=== PATIENT | male | born 1995 | race Caucasian/White ===

== ENCOUNTER 2023-11-16 10:57 | Emergency (ER) | payer OTHER ==
--- NOTE | 2023-11-16 11:34 | ED Physician Documentation ---
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 Comorbidities include anxiety and depression for which he takes Lexapro. He has been drinking steadily for months. Last alcoholic drink was a couple of days ago but has been drinking rubbing alcohol in the interim, but only a total of three quarters of a bottle over the course of a few days. He is shaky. Denies hallucinations or vomiting. PD PAST MEDICAL HISTORY - Past Medical History Past Medical History: Yes Psych: Depression, Anxiety - Past Surgical History Past Surgical History: No - Allergies Allergies/Adverse Reactions: Allergies Allergy/AdvReac Type Severity Reaction Status Date / Time No Known Drug Allergies Allergy Verified 11/16/23 11:20 - Social History Does the pt smoke?: No Smoking Status: Never smoker Does the pt drink ETOH?: Yes ETOH Use: Liquor Does the pt have substance abuse?: No - Immunizations Immunizations are current?: Yes PD ED PE NORMAL - Vitals Vital signs reviewed: Yes - General General: Alert and oriented X 3, Other (Modestly shaky with borderline resting tachycardia) - HEENT HEENT: Other (Bloodshot eyes but not overtly icteric.) - Neck Neck: Supple, no meningeal sign, No bony TTP - Cardiac Cardiac: RRR, No murmur - Respiratory Respiratory: No respiratory distress, Clear bilaterally - Abdomen Abdomen: Non tender - Neuro Neuro: Alert and oriented X 3, 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 Relevant findings are: Rate: Rate (enter#) (82) Rhythm: NSR [place]: Normal Intervals: Normal MI QRS: Normal Ischemia: Normal ST segments - Labs Labs: Laboratory Tests 11/16/23 11/16/23 11/16/23 11:38 11:38 11:38 WBC 8.6 RBC 4.35 L Hgb 14.5 Hct 42.5 MCV 97.7 H MCH 33.3 H MCHC 34.1 RDW 12.7 Plt Count 241 MPV 8.5 Neut # (Auto) 6.8 H Lymph # (Auto) 1.2 L [place] # (Auto) 0.5 Eos # (Auto) 0.0 Baso # (Auto) 0.1 Absolute Nucleated RBC 0.00 Nucleated RBC % 0.0 VBG pH 7.493 H VBG pCO2 36.5 L VBG pO2 25.3 VBG HCO3 27.4 VBG Total CO2 28.5 VBG O2 Saturation 53.4 L VBG Base Excess 4.2 H Sodium 136 Potassium 3.2 L Chloride 98 L Carbon Dioxide 29 Anion Gap 9.0 BUN 7 Creatinine 1.2 Estimated GFR (MDRD) 73 L Glucose 131 H Calcium 9.4 Magnesium 1.5 L Total Bilirubin 0.5 AST 200 H ALT 140 H Alkaline Phosphatase 37 L Total Creatine Kinase 92 Total Protein 6.8 Albumin 4.5 Globulin 2.3 Albumin/Globulin Ratio 2.0 Lipase 35 TSH 1.19 Salicylates < 1.5 Acetaminophen 0.1 Ethyl Alcohol < 10.0 Serum Ketones SMALL H SARS-CoV-2 (PCR) 11/16/23 11:48 WBC RBC Hgb Hct MCV MCH MCHC RDW Plt Count MPV Neut # (Auto) Lymph # (Auto) [place] # (Auto) Eos # (Auto) Baso # (Auto) Absolute Nucleated RBC Nucleated RBC % VBG pH VBG pCO2 VBG pO2 VBG HCO3 VBG Total CO2 VBG O2 Saturation VBG Base Excess Sodium Potassium Chloride Carbon Dioxide Anion Gap BUN Creatinine Estimated GFR (MDRD) Glucose Calcium Magnesium Total Bilirubin AST ALT Alkaline Phosphatase Total Creatine Kinase Total Protein Albumin Globulin Albumin/Globulin Ratio Lipase TSH Salicylates Acetaminophen Ethyl Alcohol Serum Ketones SARS-CoV-2 (PCR) NOT DETECTED PD Medical Decision Making - ED course ED course: 28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 Social work was involved and arranged for him to go to [facility] and I did do a doctor to doctor discussion with Dr. Goldstein at [facility] who accepts at approximately 3:10 PM. In the interim labs were notable for mild hypokalemia and hypomagnesemia repleted orally. CMP was otherwise remarkable for mild transaminitis from his alcoholism. CBC only notable for macrocytosis. He had no alcohol on board and a COVID swab was negative. He did have small ketones but was taking plenty of oral fluids here and an unremarkable venous blood gas which was checked given the recent isopropanol ingestion. Departure - Departure Disposition: 65 Psych Hosp/Unit DC/Xfer Clinical Impression: Hypokalemia, Hypomagnesemia, Alcohol abuse Condition: Stable Forms: PCP List
[2023-11-16 11:45] LABS: BASOPHILS # (AUTO) 0.1 10^3/uL (0.0-0.1); BASOPHILS % (AUTO) 0.6 %; EOSINOPHILS % (AUTO) 0.2 %; HCT - HEMATOCRIT 42.5 % (42.0-52.0); HGB - HEMOGLOBIN 14.5 g/dL (14.0-18.0); LYMPHOCYTES # (AUTO) 1.2 10^3/uL (1.5-3.5); LYMPHOCYTES % (AUTO) 13.8 %; MEAN CORPUSCULAR HEMOGLOBIN 33.3 pg (27.0-31.0); MEAN CORPUSCULAR HGB CONC 34.1 g/dL (32.0-36.0); MEAN CORPUSCULAR VOLUME 97.7 fL (80.0-94.0); MEAN PLATELET VOLUME 8.5 fL (7.4-11.4); MONOCYTES # (AUTO) 0.5 10^3/uL (0.0-1.0); MONOCYTES % (AUTO) 5.9 %; NEUTROPHILS # (AUTO) 6.8 10^3/uL (1.5-6.6); PLT - PLATELET COUNT 241 10^3/uL (130-450); RED BLOOD COUNT 4.35 10^6/uL (4.70-6.10); RED CELL DISTRIBUTION WIDTH 12.7 % (12.0-15.0); WHITE BLOOD COUNT 8.6 x10^3/uL (4.8-10.8)
[2023-11-16] MEDS: LORazepam 1 MG TABLET PO STA (11:45)
[2023-11-16 11:47] LABS: KETONES, SERUM (ACETEST) SMALL (NEGATIVE)
[2023-11-16 11:50] LABS: VBG BASE EXCESS 4.2 mmol/L (-2 - +2); VBG HCO3 27.4 mmol/L (23-28); VBG OXYGEN SATURATION 53.4 % (60-80); VBG PCO2 36.5 mmHg (41-51); VBG PH 7.493 (7.31-7.41); VBG PO2 25.3 mmHg (25-47); VBG TOTAL CO2 28.5 mmol/L (24-29)
[2023-11-16 12:02] LABS: ACETAMINOPHEN 0.1 ug/mL; ALBUMIN 4.5 g/dL (3.2-5.5); ALKALINE PHOSPHATASE 37 IU/L (42-121); ALT ALANINE AMINOTRANSFERASE 140 IU/L (10-60); AST ASPARTATE AMINOTRANSFERASE 200 IU/L (10-42); BILIRUBIN,TOTAL 0.5 mg/dL (0.2-1.0); BUN - BLOOD UREA NITROGEN 7 mg/dL (6-20); CALCIUM 9.4 mg/dL (8.5-10.3); CARBON DIOXIDE - CO2 29 mmol/L (21-32); CHLORIDE 98 mmol/L (101-111); CK- CREATINE KINASE 92 IU/L (30-223); CREATININE 1.2 mg/dL (0.6-1.3); ETOH - ETHANOL < 10.0 mg/dL; GFR - MDRD 73 (>89); GLUCOSE 131 mg/dL (74-104); LIPASE 35 U/L (11-82); MAGNESIUM 1.5 mg/dL (1.7-2.3); POTASSIUM 3.2 mmol/L (3.5-4.5); SODIUM 136 mmol/L (135-145); TOTAL PROTEIN 6.8 g/dL (6.4-8.9)
[2023-11-16 12:07] LABS: SALICYLATE < 1.5 mg/dL
[2023-11-16 12:13] LABS: THYROID STIMULATING HORMONE 1.19 uIU/mL (0.34-5.60)
[2023-11-16] MEDS: THIAMINE 100 MG TABLET PO STA (13:03)
[2023-11-16] MEDS: POTASSIUM BICARB 25 MEQ TABLET PO STA (13:03)
[2023-11-16] MEDS: MAGNESIUM OXIDE 400 MG TABLET PO STA (13:03)
[2023-11-16 15:35] LABS: BILIRUBIN,URINE NEGATIVE (NEGATIVE); GLUCOSE, URINE (UA) NEGATIVE (NEGATIVE); KETONES,URINE (UA) NEGATIVE (NEGATIVE); LEUKOCYTE ESTERASE, URINE NEGATIVE (NEGATIVE); NITRITE,URINE NEGATIVE (NEGATIVE); OCCULT BLOOD,URINE SMALL (NEGATIVE); PH,URINE 7.5 PH (5.0-7.5); PROTEIN,URINE NEGATIVE (NEGATIVE); UROBILINOGEN,URINE 0.2 (NORMAL) E.U./dL (NORMAL)
[2023-11-16 15:37] LABS: CLARITY,URINE CLEAR (CLEAR)
[2023-11-16 15:44] LABS: BACTERIA,URINE None Seen /HPF (None Seen); RBC,URINE 0-5 /HPF (0-5); SQUAMOUS EPITHELIAL CELL,UR RARE Squamous (<= Few); WBC,URINE 0-3 /HPF (0-3)
[2023-11-16 15:47] LABS: AMPHETAMINE SCREEN,URINE NEGATIVE (NEGATIVE); BARBITURATE SCREEN,UR NEGATIVE (NEGATIVE); BENZODIAZEPINES SCREEN, URINE NEGATIVE (NEGATIVE); BUPRENORPHINE SCREEN, URINE NEGATIVE (NEGATIVE); COCAINE SCREEN URINE NEGATIVE (NEGATIVE); METHADONE SCREEN, URINE NEGATIVE (NEGATIVE); METHAMPHETAMINES SCREEN, URINE NEGATIVE (NEGATIVE); OPIATE SCREEN, URINE NEGATIVE (NEGATIVE); OXYCODONE SCREEN, URINE NEGATIVE (NEGATIVE); THC CANNABINOID SCREEN, URINE NEGATIVE (NEGATIVE); TRICYCLIC ANTIDEPRESSANT,URINE NEGATIVE (NEGATIVE)
[2023-11-16] MEDS: NICOTINE 14 MG PATCH TOP STA (16:01)
[2023-11-16 17:28] VITALS: BP 134/83; O2SAT 98
== END 2023-11-16 18:40 ==
LOC: ED 10:57
DX: F10.139 Alcohol abuse with withdrawal, unspecified (principal); Y90.0 Blood alcohol level of less than 20 mg/100 ml; E87.6 Hypokalemia; E83.42 Hypomagnesemia; R74.01 Elevation of levels of liver transaminase levels; D75.89 Other specified diseases of blood and blood-forming organs; T51.2X1A Toxic effect of 2-Propanol, accidental (unintentional), initial encounter
CPT/HCPCS: 36415; 80053; 80143; 80179; 80306; 81001; 82009; 82077; 82550; 82803; 83690; 83735; 84443; 85025; 87635; 93005; 99285; A9270; J8499; 81003; 87086